=== PATIENT | male | born 1990 | race Caucasian/White ===

== ENCOUNTER 2018-01-06 18:45 | Emergency (ER) | payer SELFPAY ==
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
[2018-01-06 19:57] LABS: Absolute Lymphocytes (CBC) 2.1 K/uL (0.7-4.9); Absolute Monocytes 0.8 K/uL (0.1-1.3); Absolute Neutrophil 4.7 K/uL (1.8-8.0); Eosinophils % 1.1 % (0-4.4); Hematocrit 37.9 % (39.6-49.0); Lymphocytes % 27.2 % (15.3-44.8); MCH 32.2 pg (27.0-35.0); MCV 90.8 fL (80-100); MPV 8.7 fL (7.6-11.3); Monocytes % 10.1 % (3.3-12.3); RBC Red Blood Cell Count 4.17 M/uL (4.33-5.43)
[2018-01-06] MEDS ORDERED: FENTANYL CITR 100 MCG/2 ML ONE (20:07)
[2018-01-06] MEDS ORDERED: TETANUS & DIPHTHERIA TOX,ADULT 0.5 ML VIAL ONE (20:07)
[2018-01-06] MEDS ORDERED: ONDANSETRON 4 MG/2 ML VIAL ONE (20:07)
[2018-01-06] MEDS ORDERED: CEFAZOLIN/SWI 1gm 2 GM/20 ML SYR ONE (20:08)
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
[2018-01-06 20:38] LABS: Potassium 4.3 mmol/L (3.5-5.1)
[2018-01-06 21:22] VITALS: O2SAT 100
[2018-01-06 21:25] VITALS: BP 128/83; TEMP 98.5
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
== END 2018-01-06 21:05 | disposition short-term general hospital (02) ==
LOC: ER 18:45
DX: S21.219A Laceration without foreign body of unspecified back wall of thorax without penetration into thoracic cavity, initial encounter (principal); S31.112A Laceration without foreign body of abdominal wall, epigastric region without penetration into peritoneal cavity, initial encounter; S51.811A Laceration without foreign body of right forearm, initial encounter; T79.7XXA Traumatic subcutaneous emphysema, initial encounter; X99.1XXA Assault by knife, initial encounter; Y93.9 Activity, unspecified; Y92.9 Unspecified place or not applicable
CPT/HCPCS: 36415; 51702; 71045; 71260; 74177; 80048; 85025; 86850; 86900; 86901; 90714; 96361; 96365; 96375; 99291; J0690; J2405; J3010; P9016; Q9967

== ENCOUNTER 2019-09-08 21:18 | Emergency (ER) | payer SELFPAY ==
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
[2019-09-08] MEDS ORDERED: IBUPROFEN 400 MG TAB ONE ×2 (23:38→23:42)
[2019-09-08 23:42] VITALS: BP 121/97; TEMP 98.1; O2SAT 100
--- NOTE | 2019-09-09 10:36 | RAD REPORT ---
EXAM DESCRIPTION: RAD - Hand Right 3 View - 09/08/2019 10:13 pm CLINICAL HISTORY: Right hand pain status post injury FINDINGS: Moderately displaced fracture fifth metacarpal neck with angulation present at fracture si te Nondisplaced fracture base of the fourth metacarpal. No dislocation
== END 2019-09-08 23:36 | disposition home or self-care (01) ==
LOC: ER 21:18
PROC: 2W3CX1Z Immobilization of Right Lower Arm using Splint (ICD-10-PCS; principal; 2019-09-08)
DX: S62.366A Nondisplaced fracture of neck of fifth metacarpal bone, right hand, initial encounter for closed fracture (principal); W22.8XXA Striking against or struck by other objects, initial encounter; Y93.9 Activity, unspecified; Y92.9 Unspecified place or not applicable; F17.210 Nicotine dependence, cigarettes, uncomplicated
CPT/HCPCS: 99283

== ENCOUNTER 2021-06-15 21:19 | Emergency (ER) | payer SELFPAY ==
--- NOTE | 2021-06-15 21:36 | ER ---
Nurse's Notes [facility] Name: Jaxson Fuentes Jr Age: 30 yrs Sex: Male : 1990 Arrival Date: 06/15/2021 Time: 21:24 Bed Waiting Private MD: Diagnosis: Presentation: 06/15 21:34 Chief complaint:. ld1 ED Course: 21:24 Patient arrived in ED. es Administered Medications: No medications were administered Outcome: 21:36 Patient left the ED. ld1 Signatures: Emily Pérez Lauren RN RN ld1
== END 2021-06-15 21:36 | disposition left against medical advice (07) ==
LOC: ER 21:19
DX: Z02.89 Encounter for other administrative examinations (principal)
CPT/HCPCS: 99281

== ENCOUNTER 2023-01-29 22:56 | Emergency (ER) | payer SELFPAY ==
--- OUTSIDE RECORDS SUMMARY | 2023-01-29 23:05 | XMS REPORT | Continuity of Care Document ---
:1990 Author Organization [facility] t Address [address] [place] [id number] Care Team Providers Name Role Phone PCP, PATIENT DOES NOT HAVE A Primary Care Physician Unavaila ble CASSIA GUTIERREZ Attending Clinician Unavailable Matt YEAST CULTURE DEVELOPERCassia Attending Clinician CASSIA GUTIERREZ Admitting Clinician Unavailable Problems Condition Condition Condition Status Onset Resolution Last Treating Co mments Source Name Details Category Date Date Treatment Clinician Date No known No known Disease Unive rs active active ity of problems problems [facility] Allergies, Adverse Reactions, Alerts Allergy Allergy Status Severity Reaction(s) Onset Inactive Treating Comm ents Source Name Type Date Date Clinician NO KNOWN Drug Active Univers ALLERGIE Class ity of S [facility] Social History Social Habit Start Date Stop Date Quantity Comments Source Exposure to Not sure [facility] SARS-CoV-2 (event) Medica l Branch Sex Assigned At [birth year] [facility] 00:00:00 00:00:00 [facility] Smoking Status Start Date Stop Date Source Unknown if ever smoked [facility] Medications Ordered Filled Start Stop Current Ordering Indication Dosage Frequency Signature Comments Components Source Medication Medication Date Date Medication? Clinician (SIG) Name Name ciprofloxac 2021- No [id number] 500mg Take 1 [facility] in HCl 500 06-16 [id number] tablet by i ty of mg tablet 00:00: 04:59 [place] 2 [place] Medical times Branch daily for 5 days. Vital Signs Vital Name Observation Time Observation Value Comments Source Systolic blood 2021-06-16 03:06:00 150 mm[Hg] Univer sity of pressure [facility] Diastolic blood 2021-06-16 03:06:00 99 mm[Hg] Unive rsity of pressure [facility] Heart rate 2021-06-16 03:06:00 93 /min [facility] Body temperature 2021-06-16 03:06:[address] [facility] Respiratory rate 2021-06-16 03:06:00 18 /min [facility] Body height 2021-06-16 03:06:00 172.7 cm [facility] Body weight 2021-06-16 03:06:00 77.111 kg [facility] BMI 2021-06-16 03:06:00 25.85 kg/m2 [facility] Oxygen saturation in 2021-06-16 03:06:00 98 /min [facility] Arterial blood by [facility] Pulse oximetry Branch Procedures Procedure Date / Time Performed Performing Clinician Sourc e XR FOOT <3 VW RIGHT 2021-06-16 05:36:[address] [facility] NOTICE OF PRIVACY 2021-06-16 03:02:48 Doctor Unassigned, No [facility] PRACTICES Name [facility] Branch CONSENT/REFUSAL FOR 2021-06-16 03:02:24 Doctor Unassigned, No Un [facility] DIAGNOSIS AND Name Medical Branch TREATMENT Encounters Start End Encounter Admission Attending Care Care Encounter Source Date/Time Date/Time Type Type Clinicians Facility Department ID 2021-06-15 2021-06-16 Emergency X [facility] ERT [id number] [facility] 22:09:00 01:05:[address] [facility] 2021-06-15 2021-06-16 [id number] [facility] 22:09:00 01:05:00 [id number] [id number] [facility] 084 Branch Results This patient has no known results.
[2023-01-29] MEDS ORDERED: HYDROCODONE/APAP 5/325 MG TAB ONE (23:48)
[2023-01-29] MEDS ORDERED: IBUPROFEN 400 MG TAB ONE (23:49)
--- NOTE | 2023-01-30 00:36 | EDPHYS ---
Physician Documentation [facility] Name: Jaxson Fuentes Jr Age: 32 yrs Sex: Male : 1990 Arrival Date: 01/29/2023 Time: 22:56 Bed 5 Private MD: ED Physician Hemant Quiles HPI: 01/29 23:30 This 32 yrs old Male presents to ER via Ambulatory with complaints of Finger Injury. cp 23:30 The patient or guardian reports injury. The complaints affect the distal phalanx of cp right index finger. 23:30 Context: resulted from a crush injury, approximate 80 lb piece of metal. Onset: The cp symptoms/episode began/occurred today. Associated signs and symptoms: The patient has no apparent associated signs or symptoms. Historical: - Allergies: 23:19 No Known Allergies; vc1 - Home Meds: 23:19 None [Active]; vc1 - PMHx: 23:19 None; vc1 - PSHx: 23:19 None; vc1 - Immunization history:: Client reports having NOT received the Covid vaccine. - Social history:: Smoking status: Patient reports the use of cigarette tobacco products, smokes one-half pack cigarettes per day, Reported history of juuling and/or vaping. ROS: 23:35 MS/extremity: Positive for pain, swelling, tenderness, of the distal phalanx right cp index finger, Negative for decreased range of motion, deformity, paresthesias, 23:35 Constitutional: Negative for body aches, chills, fever, poor PO intake, cp 23:35 Respiratory: Negative for cough, shortness of breath, wheezing, 23:35 Abdomen/GI: Negative for abdominal pain, nausea, vomiting, and diarrhea, 23:35 All other systems are negative, Exam: 23:40 Constitutional: The patient appears in no acute distress, alert, awake, non-toxic, well cp developed, well nourished, 23:40 Head/Face: Normocephalic, atraumatic. cp 23:40 Musculoskeletal/extremity: Extremities: noted in the distal phalanx of right index finger: mild swelling, tender to palpation, nail intact and finger neurovascular intact, ROM: full active range of motion, in the right index finger, 23:40 Skin: abscess, not appreciated, cellulitis, is not appreciated, Vital Signs: 23:17 BP 170 / 105; Pulse 103; Resp 18; Temp 99; Pulse Ox 98% ; Weight 79.38 kg; Height 5 ft. vc1 8 in. ; 01/30 00:42 BP 154 / 97; Pulse 81; Resp 16; Pulse Ox 98% on R/A; jb4 01/29 23:17 Body Mass Index 26.61 (79.38 kg, 172.72 cm) vc1 MDM: 01/29 23:03 Patient medically screened. cp 01/30 00:35 Data reviewed: vital signs, nurses notes, radiologic studies, plain films. cp 00:35 Differential diagnosis: open fracture, closed fracture, contusion. I considered the cp following discharge prescriptions or medication management in the emergency department Medications were administered in the Emergency Department. See MAR. Independent interpretation of the following test(s) in the Emergency Department X-Ray: My interpretation is images of right index finger negative for fracture. Counseling: I had a detailed discussion with the patient and/or guardian regarding the historical points, exam findings, and any diagnostic results supporting the discharge/admit diagnosis, the presence of at least one elevated blood pressure reading (>120/80) during this emergency department visit, radiology results, to return to the emergency department if symptoms worsen or persist or if there are any questions or concerns that arise at home. Response to treatment: the patient's symptoms have markedly improved after treatment, and as a result, I will discharge patient. 01/29 23:19 Order name: XRAY Finger-Thumb RIGHT cp 01/30 00:17 Order name: Finger Splint; Complete Time: 00:36 cp Administered Medications: 01/29 23:40 Drug: Ibuprofen PO 800 mg PO once Route: PO; la4 23:41 Drug: HYDROcodone-acetaminophen PO 5 mg-325 mg 1 tabs PO once Route: PO; la4 Disposition Summary: 01/30/23 00:35 Discharge Ordered Notes: Location: Home cp Problem: new cp Symptoms: have improved cp Condition: Stable cp Diagnosis - Crushing injury of right index finger, initial encounter cp Followup: cp - With: Private Physician - When: 5 - 6 days - Reason: Recheck today's complaints Discharge Instructions: - Discharge Summary Sheet cp - Crush Injury of the Hand cp Forms: - Medication Reconciliation Form cp - Thank You Letter cp - Antibiotic Education cp - Prescription Opioid Use cp - Patient Portal Instructions cp - Leadership Thank You Letter cp Prescriptions: - Ibuprofen 800 mg Oral Tablet - take 1 tablet ORAL route every 8 hours As needed take with food; 30 tablet; cp Refills: 0, Product Selection Permitted Addendum: 02/03/2023 15:04 Co-signature as Attending Physician, Hemant Quiles MD I reviewed the patient's care r t provided by the Advanced Practice Provider and agree with the diagnosis and treatment plan. Signatures: Dispatcher [employer] EDNH Mahesh Rodriguez PA PA cp Calcote, Vanessa RN RN vc1 Hemant Quiles MD MD rt Song Palomino, RN RN la4
--- NOTE | 2023-01-30 00:36 | ER ---
Nurse's Notes [facility] Name: Jaxson Fuentes Jr Age: 32 yrs Sex: Male : 1990 Arrival Date: 01/29/2023 Time: 22:56 Bed 5 Private MD: Diagnosis: Crushing injury of right index finger, initial encounter Presentation: 01/29 23:17 Chief complaint: Patient states: last weekend I dropped an 80 pound piece of metal on vc1 my right index finger. Now the pain is shooting up into my hand. I just want to make sure I didn't break it. Coronavirus screen: Vaccine status: Patient reports being unvaccinated. Client denies travel out of the [place] in the last 14 days. At this time, the client does not indicate any symptoms associated with coronavirus-19. Ebola Screen: Patient negative for fever greater than or equal to 101.5 degrees Fahrenheit, and additional compatible Ebola Virus Disease symptoms Patient denies exposure to infectious person. Patient denies travel to an Ebola-affected area in the 21 days before illness onset. No symptoms or risks identified at this time. Initial Sepsis Screen: Does the patient meet any 2 criteria? No. Patient's initial sepsis screen is negative. Does the patient have a suspected source of infection? No. Patient's initial sepsis screen is negative. Risk Assessment: Do you want to hurt yourself or someone else? Patient reports no desire to harm self or others. Onset of symptoms is unknown. 23:17 Method Of Arrival: Ambulatory vc1 23:17 Acuity: HENRY 4 vc1 Triage Assessment: 23:19 General: Appears in no apparent distress. comfortable, Behavior is calm, cooperative, vc1 appropriate for age. Pain: Complains of pain in right index finger Pain radiates to right hand. EENT: No deficits noted. No signs and/or symptoms were reported regarding the EENT system. Neuro: Level of Consciousness is awake, alert, obeys commands, Oriented to person, place, time, situation, Appropriate for age. Cardiovascular: No deficits noted. Respiratory: Airway is patent Respiratory effort is even, unlabored, Respiratory pattern is regular, agonal. GI: No deficits noted. No signs and/or symptoms were reported involving the gastrointestinal system. : No deficits noted. No signs and/or symptoms were reported regarding the genitourinary system. Derm: No deficits noted. No signs and/or symptoms reported regarding the dermatologic system. Musculoskeletal: Range of motion: intact in all extremities, Swelling present in right index finger. Historical: - Allergies: 23:19 No Known Allergies; vc1 - Home Meds: 23:19 None [Active]; vc1 - PMHx: 23:19 None; vc1 - PSHx: 23:19 None; vc1 - Immunization history:: Client reports having NOT received the Covid vaccine. - Social history:: Smoking status: Patient reports the use of cigarette tobacco products, smokes one-half pack cigarettes per day, Reported history of juuling and/or vaping. Screenin:20 [facility] ED Fall Risk Assessment (Adult) History of falling in the last 3 months, vc1 including since admission No falls in past 3 months (0 pts) Confusion or Disorientation No (0 pts) Intoxicated or Sedated No (0 pts) Impaired Gait No (0 pts) Mobility Assist Device Used No (0 pt) Altered Elimination No (0 pt). Abuse screen: Denies threats or abuse. Nutritional screening: No deficits noted. Tuberculosis screening: No symptoms or risk factors identified. Assessment: 01/30 00:41 Reassessment: Patient appears in no apparent distress at this time. Patient and/or jb4 family updated on plan of care and expected duration. Pain level reassessed. Patient is alert, oriented x 3, equal unlabored respirations, skin warm/dry/pink. Vital Signs: 01/29 23:17 BP 170 / 105; Pulse 103; Resp 18; Temp 99; Pulse Ox 98% ; Weight 79.38 kg; Height 5 ft. vc1 8 in. ; 01/30 00:42 BP 154 / 97; Pulse 81; Resp 16; Pulse Ox 98% on R/A; jb4 01/29 23:17 Body Mass Index 26.61 (79.38 kg, 172.72 cm) vc1 ED Course: 01/29 22:59 Patient arrived in ED. jj6 23:03 Mahesh Rodriguez PA is PHCP. cp 23:03 Hemant Quiles MD is Attending Physician. cp 23:19 Triage completed. vc1 23:19 Arm band placed on right wrist. vc1 23:21 Patient has correct armband on for positive identification. Bed in low position. Call vc1 light in reach. Pulse ox on. NIBP on. 23:59 XRAY Finger-Thumb RIGHT In Process Unspecified. EDMS 01/30 00:41 No provider procedures requiring assistance completed. Patient did not have IV access jb4 during this emergency room visit. Administered Medications: 01/29 23:40 Drug: Ibuprofen PO 800 mg PO once Route: PO; la4 23:41 Drug: HYDROcodone-acetaminophen PO 5 mg-325 mg 1 tabs PO once Route: PO; la4 Medication: 01/30 00:41 VIS not applicable for this client. jb4 Outcome: 00:35 Discharge ordered by MD. cp 00:41 Discharged to home ambulatory, with family, jb4 00:41 Condition: stable 00:41 Discharge instructions given to patient, Instructed on discharge instructions, follow up and referral plans. medication usage, Demonstrated understanding of instructions, follow-up care, medications, Prescriptions given X 1, 00:42 Patient left the ED. jb4 Signatures: Dispatcher [employer] EDMS Mahesh Rodriguez PA PA Luis Manuel Flowre, RN RN jb4 Tish Reyesj6 Viky Shrestha RN RN vc1 Song Palomino RN RN la4
[2023-01-30 01:46] VITALS: TEMP 99; O2SAT 98
[2023-01-30 01:53] VITALS: BP 154/97
--- NOTE | 2023-01-30 13:40 | RAD REPORT ---
EXAM DESCRIPTION: RAD - Finger-Thumb Right - 01/29/2023 11:57 pm CLINICAL HISTORY: 32 years Male, PAIN COMPARISON: Right hand radiograph dated 09/08/2019 IMPRESSION: No fracture or dislocation. Joint spaces are preserved. Mild swelling of the index finger. Bone mineralization is normal. Electronically signed by: Benson Lopez DO 01/30/2023 12:31 AM CDT Due to temporary technical issues with the PACS/Fluency reporting system, reports are being signed by the in house radiologists without review as a courtesy to insure prompt reporting. The interpreting radiologist is fully responsible for the content of the report.
== END 2023-01-30 00:42 | disposition home or self-care (01) ==
LOC: ER 22:56
DX: S67.190A Crushing injury of right index finger, initial encounter (principal)
CPT/HCPCS: 99283

== ENCOUNTER 2023-07-14 20:33 | Emergency (ER) | payer SELFPAY ==
--- OUTSIDE RECORDS SUMMARY | 2023-07-14 20:36 | XMS REPORT | Continuity of Care Document ---
Author Name Unknown Address [address] [place] [address] [facility]connect Address [address] [place] [address] Care Team Providers Care Development Trainer Name Role Phone PCP, PATIENT DOES NOT HAVE A Primary Care Physic zahida Unavailable ANY [place] Attending Clinician Unavailable Any [place] NP Attending Clinician ANY [place] Admitting Clinician Unavailable Problems Condition Name Condition Details Condition Category Status Onset Date Resolution Date Last Treatment Date Treating Clinician Comments Source No known active problems No known active problems Disease [facility] Allergies, Adverse Reactions, Alerts Allergy Name Allergy Type Status Severity Reaction(s) Onset Date Inactive Date Treating Clinician Comments Source NO KNOWN ALLERGIE S Drug Class Active [facility] Social History Social Habit Start Date Stop Date Quantity Comments Source Exposure to SARS-CoV-2 (event) Not sure [facility] Sex Assigned At 1990 00:00:00 1990 00:00:00 [facility] Smoking Status Start Date Stop Date Source Unknown if ever smoked [facility] Medications Ordered Medication Name Filled Medication Name Start Date Stop Date Current Medication? Ordering Clinician Indication Dosage Frequency Signature (SIG) Comments Components Source ciprofloxac in HCl 500 mg tablet 06-16 00:00: 00 06-22 04:59 :00 No [id number] 500mg Take 1 tablet by mouth 2 (two) times daily for 5 days. [facility] Vital Signs Vital Name Observation Time Observation Value Comments S ource Systolic blood pressure 2021-06-16 03:06:00 150 mm[Hg] [facility] Diastolic blood pressure 2021-06-16 03:06:00 99 mm[Hg] [facility] Heart rate 2021-06-16 03:06:00 93 /min [facility] Body temperature 2021-06-16 03:06:00 37.17 [place] Respiratory rate 2021-06-16 03:06:00 18 /min [facility] Body height 2021-06-16 03:06:00 172.7 cm [facility] Body weight 2021-06-16 03:06:00 77.111 kg [facility] BMI 2021-06-16 03:06:00 25.85 kg/m2 [facility] Oxygen saturation in Arterial blood by Pulse oximetry 2021-06-16 03:06:00 98 /min [facility] Procedures Procedure Date / Time Performed Performing Clinicia n Source XR FOOT <3 VW RIGHT 2021-06-16 05:36:32 [place] [facility] NOTICE OF PRIVACY PRACTICES 2021-06-16 03:02:48 Doctor Unassigned, [place] [facility] CONSENT/REFUSAL FOR DIAGNOSIS AND TREATMENT 2021-06-16 03:02:24 Doctor Unassigned, [place] [facility] Encounters Start Date/Time End Date/Time Encounter Type Admission Type Attending [facility] Care Facility Care Department Encounter ID Source 2021-06-15 22:09:00 2021-06-16 01:05:00 Emergency X ANY [place] [facility] ERT [id number] [facility] 2021-06-15 22:09:00 2021-06-16 01:05:00 Emergency Any [place] [facility] [id number] [facility]
--- NOTE | 2023-07-14 21:32 | RAD REPORT ---
EXAM DESCRIPTION: RAD - Chest Single View - 07/14/2023 9:22 pm CLINICAL HISTORY: CONGESTION Chest pain. COMPARISON: Chest Single View dated 01/06/2018; CHEST PA AND LAT 2 VIEW dated 07/29/2014 FINDINGS: Portable technique limits examination quality. The lungs are grossly clear. The heart is normal in size. No displaced fractures. IMPRESSION: No acute intrathoracic process suspected.
[2023-07-14 21:40] LABS: Absolute Basophils 0.1 K/uL (0-0.5); Absolute Lymphocytes (CBC) 2.3 K/uL (0.7-4.9); Absolute Monocytes 0.9 K/uL (0.1-1.3); Eosinophils % 0.4 % (0-4.4); Hemoglobin 14.4 g/dL (13.6-17.9); MCH 30.8 pg (27.0-35.0); MCHC 34.2 g/dL (32.0-36.0); MCV 90.1 fL (80-100); MPV 7.7 fL (7.6-11.3); Monocytes % 6.5 % (3.3-12.3); Neutrophils % 75.1 % (41.7-73.7); Platelets 430 thou/uL (152-406); RBC Red Blood Cell Count 4.66 M/uL (4.33-5.43); Red Cell Distribution Width 13.4 % (12.1-15.2)
[2023-07-14 21:42] LABS: PT Prothrombin Time 12.3 SECONDS (9.5-12.5); Protime INR 1.12
[2023-07-14 22:00] LABS: ALT/SGPT 48 U/L (16-61); AST/SGOT 24 U/L (15-37); Albumin 3.7 g/dL (3.4-5.0); Albumin/Globulin Ratio 0.9 (1.1-1.8); Alkaline Phosphatase 57 U/L (45-117); BUN Blood Urea Nitrogen 9 mg/dL (7-18); Bicarbonate 26 mEq/L (21-32); Bilirubin Total 0.4 mg/dL (0.2-1.0); Globulin 4.1 g/dL (2.3-3.5); Glomerular Filtration Rate 82 ml/min (=/>90); Glucose Level 125 mg/dL (74-106); NT PRO-BNP 19 pg/mL (<125); Protein, Total 7.8 g/dL (6.4-8.2); Sodium Level 137 mEq/L (136-145); Troponin High Sensitivity 6.3 pg/mL (<58.9)
[2023-07-14 22:02] LABS: Barbiturates NEGATIVE (NEGATIVE); Benzodiazepines NEGATIVE (NEGATIVE); Bilirubin Direct < 0.1 mg/dL (0-0.2); Bilirubin Indirect, Calculated ND mg/dL (0.2-0.8); Cocaine NEGATIVE (NEGATIVE); METHAMPHETAM NEGATIVE (NEGATIVE); Methadone NEGATIVE (NEGATIVE); Opiates NEGATIVE (NEGATIVE); Phencyclidine NEGATIVE (NEGATIVE); THC Cannibis NEGATIVE (NEGATIVE)
[2023-07-14 23:03] LABS: SARS-CoV-2 Antigen CONTROL BLUE LINE VIS/BG OK; SARS-CoV-2 Antigen Rapid Res Negative (Negative)
[2023-07-14] MEDS ORDERED: AZITHROMYCIN 250 MG TAB ONE (23:11)
[2023-07-14] MEDS ORDERED: GUAIFENESIN/DM 5 ML UCUP ONE (23:12)
[2023-07-14 23:19] LABS: Monoscreen NEG (NEG)
--- NOTE | 2023-07-15 00:06 | ER ---
Nurse's Notes [facility] Name: Jaxson Fuentes Jr Age: 32 yrs Sex: Male : 1990 Arrival Date: 07/14/2023 Time: 20:33 Bed 17 [facility] MD: Diagnosis: Dyspnea;Acute bronchitis, unspecified Presentation: 07/13 20:45 Chief complaint: Patient states: SOB off and on X 1 month. Coronavirus screen: At this vc1 time, the client does not indicate any symptoms associated with coronavirus-19. Ebola Screen: Patient negative for fever greater than or equal to 101.5 degrees Fahrenheit, and additional compatible Ebola Virus Disease symptoms Patient denies exposure to infectious person. Patient denies travel to an Ebola-affected area in the 21 days before illness onset. No symptoms or risks identified at this time. Initial Sepsis Screen: Does the patient meet any 2 criteria? No. Patient's initial sepsis screen is negative. Does the patient have a suspected source of infection? No. Patient's initial sepsis screen is negative. Risk Assessment: Do you want to hurt yourself or someone else? Patient reports no desire to harm self or others. Note Mowed today and started feeling SOB made feel like was going to "fall out". Onset of symptoms is unknown. Care prior to arrival: Medication(s) given: albuterol inhaler. 20:45 Method Of Arrival: Ambulatory vc1 20:45 Acuity: HENRY 3 vc1 Triage Assessment: 20:48 General: Appears in no apparent distress. uncomfortable, Behavior is calm, cooperative, vc1 appropriate for age. Pain: Denies pain. EENT: No deficits noted. No signs and/or symptoms were reported regarding the EENT system. Neuro: Level of Consciousness is awake, alert, obeys commands, Oriented to person, place, time, situation, Appropriate for age. Cardiovascular: No deficits noted. Respiratory: Reports shortness of breath at rest Onset: The symptoms/episode began/occurred off and on for a few months, the patient has mild shortness of breath. Respiratory: Airway is patent Respiratory effort is even, unlabored, Respiratory pattern is regular, symmetrical. GI: No deficits noted. No signs and/or symptoms were reported involving the gastrointestinal system. : No deficits noted. No signs and/or symptoms were reported regarding the genitourinary system. Derm: No deficits noted. No signs and/or symptoms reported regarding the dermatologic system. Musculoskeletal: No deficits noted. No signs and/or symptoms reported regarding the musculoskeletal system. Historical: - Allergies: 20:47 No Known Allergies; vc1 - Home Meds: 20:47 Albuterol Inhl [Active]; vc1 - PMHx: 20:47 acute bronchitis; vc1 - PSHx: 20:47 None; vc1 - Immunization history:: Client reports having NOT received the Covid vaccine. Flu vaccine is not up to date. - Infectious Disease History:: Denies. - Social history:: Smoking status: Patient reports the use of cigarette tobacco products, half to full PPD. - Family history:: not pertinent. Screenin:31 [facility] ED Fall Risk Assessment (Adult) History of falling in the last 3 months, as6 including since admission No falls in past 3 months (0 pts) Confusion or Disorientation No (0 pts) Intoxicated or Sedated No (0 pts) Impaired Gait No (0 pts) Mobility Assist Device Used No (0 pt) Altered Elimination No (0 pt) Score/Fall Risk Level 0 - 2 = Low Risk Oriented to surroundings, Maintained a safe environment, Educated pt \\T\\ family on fall prevention, incl call for assistance when getting out of bed, Assessed \\T\\ reinforced patient's understanding of fall precautions. Abuse screen: Denies threats or abuse. Denies injuries from another. Nutritional screening: No deficits noted. Tuberculosis screening: No symptoms or risk factors identified. Assessment: 21:30 General: Appears in no apparent distress. Behavior is calm, cooperative. Pain: Denies as6 pain. Neuro: Level of Consciousness is awake, alert, obeys commands, Oriented to person, place, time, situation. Cardiovascular: Denies chest pain, Heart tones S1 S2 present. Respiratory: Reports shortness of breath cough that is Airway is patent Trachea midline Respiratory effort is even, unlabored, Respiratory pattern is regular, symmetrical, Breath sounds are clear bilaterally. GI: No deficits noted. No signs and/or symptoms were reported involving the gastrointestinal system. : No deficits noted. No signs and/or symptoms were reported regarding the genitourinary system. EENT: No deficits noted. No signs and/or symptoms were reported regarding the EENT system. Derm: Skin is intact, is healthy with good turgor. Musculoskeletal: Circulation, motion, and sensation intact. 22:26 Reassessment: Patient appears in no apparent distress at this time. Patient and/or as6 family updated on plan of care and expected duration. Pain level reassessed. Patient is alert, oriented x 3, equal unlabored respirations, skin warm/dry/pink. 22:29 Reassessment: Patient appears in no apparent distress at this time. assumed care of pt, km8 denies any needs at this time and updated on POC. Cardiovascular: Rhythm is sinus rhythm. 23:35 Reassessment: Patient appears in no apparent distress at this time. No changes from km8 previously documented assessment. Patient and/or family updated on plan of care and expected duration. Pain level reassessed. Patient is alert, oriented x 3, equal unlabored respirations, skin warm/dry/pink. Vital Signs: 20:45 BP 147 / 89; Pulse 106; Resp 15; Temp 98; Pulse Ox 100% ; Weight 81.65 kg; Height 5 ft. vc1 8 in. ; Pain 0/10; 21:33 BP 128 / 85; Pulse 73; Resp 13 S; Pulse Ox 99% on R/A; as6 22:25 BP 131 / 81; Pulse 78; Resp 14 S; Pulse Ox 97% on R/A; as6 23:00 BP 132 / 91; Pulse 82; Resp 16; Pulse Ox 100% on R/A; km8 23:45 BP 127 / 90; Pulse 73; Resp 16; Pulse Ox 100% on R/A; km8 20:45 Body Mass Index 27.37 (81.65 kg, 172.72 cm) vc1 20:45 Pain Scale: Adult vc1 [place] Coma Score: 23:14 Eye Response: spontaneous(4). Motor Response: obeys commands(6). Verbal Response: sp4 oriented(5). Total: 15. ED Course: 20:37 Patient arrived in ED. ra3 20:42 Gary Schwab MD is Attending Physician. sp4 20:47 Triage completed. vc1 20:48 Arm band placed on right wrist. vc1 20:53 Kenney Iraheta, LICHA is Primary Nurse. as6 21:24 XRAY Chest (1 view) In Process Unspecified. EDMS 21:28 Alcohol Level Sent. as6 21:28 Urine Drug Screen Sent. as6 21:29 Basic Metabolic Panel Sent. as6 21:29 CBC with Diff Sent. 21:29 LFT's Sent. : Magnesium Sent. : NT PRO-BNP Sent. 6 21: PT-INR Sent. 21: Troponin HS Sent. as6 21:31 Inserted saline lock: 20 gauge in right antecubital area, using aseptic technique. as6 Blood collected. 21:34 Placed in gown. Bed in low position. Call light in reach. Side rails up X 1. Client as6 placed on continuous cardiac and pulse oximetry monitoring. NIBP monitoring applied. monitoring engineer on. Warm blanket given. 21:40 Flu and/or RSV swab sent to lab. vk 23:35 No provider procedures requiring assistance completed. 8 07/14 00:04 Jozef Busby DO is Referral Physician. sp4 00:24 Provided Education on: d/c teaching. 00:25 IV discontinued, intact, bleeding controlled, No redness/swelling at site. Pressure km8 dressing applied. Administered Medications: 07/13 23:15 Drug: Dextromethorphan-Guaifenesin PO Liquid 10 mg-100 mg/5 mL 10 ml PO once Route: PO; 07/14 00:18 Follow up: Response: No adverse reaction 8 07/13 23:15 Drug: AZITHromycin PO 500 mg PO once Route: PO; 07/14 00:18 Follow up: Response: No adverse reaction 8 Medication: 07/13 21:34 VIS not applicable for this client. as6 Outcome: 07/14 00:06 Discharge ordered by . sp4 00:24 Discharged to home ambulatory, with family, 8 00:24 Condition: good 00:24 Discharge instructions given to patient, Instructed on discharge instructions, follow up and referral plans. medication usage, Demonstrated understanding of instructions, follow-up care, medications, Prescriptions given X 3, 00:25 Patient left the ED. 8 Signatures: Dispatcher [employer] EDMS Kenney Iraheta RN RN as6 Viky Shrestha RN RN vc1 Gary Schwab MD MD sp4 Melisa Keating RN RN km8 Azul Zuleta Vivian vk Corrections: (The following items were deleted from the chart) 07/13 21:33 21:28 T4 FREE+C.LAB.BRZ drawn and sent. as6 EDMS 21:34 21:28 THYROID STIMULAT HORMONE+C.LAB.BRZ drawn and sent. as6 EDMS
--- NOTE | 2023-07-15 00:06 | EDPHYS ---
Physician Documentation [facility] Name: Jaxson Fuentes Jr Age: 32 yrs Sex: Male : 1990 Arrival Date: 07/14/2023 Time: 20:33 Bed 17 Private MD: ED Physician Gary Schwab HPI: 07/13 20:46 This 32 yrs old Other Male presents to ER via Unassigned with complaints of Shortness sp4 Of Breath - [id number]. 22:59 ED pleasant 32-year-old male presents with acute onset shortness of breath for the past sp4 1 month. Patient reports shortness of breath associated with some chest discomfort without fever without dyspnea on exertion without orthopnea. Patient reported dry cough associated with the symptoms. Historical: - Allergies: 20:47 No Known Allergies; vc1 - Home Meds: 20:47 Albuterol Inhl [Active]; vc1 - PMHx: 20:47 acute bronchitis; vc1 - PSHx: 20:47 None; vc1 - Immunization history:: Client reports having NOT received the Covid vaccine. Flu vaccine is not up to date. - Infectious Disease History:: Denies. - Social history:: Smoking status: Patient reports the use of cigarette tobacco products, half to full PPD. - Family history:: not pertinent. ROS: 22:59 Constitutional: Negative for fever, chills, and weight loss, today for shortness of sp4 breath and dry cough Eyes: Negative for injury, pain, redness, and discharge, ENT: Negative for injury, pain, and discharge, Neck: Negative for injury, pain, and swelling, Cardiovascular: Positive for shortness of breath Respiratory: Positive for dry cough Abdomen/GI: Negative for abdominal pain, nausea, vomiting, diarrhea, and constipation, Back: Negative for injury and pain, : Negative for injury, bleeding, discharge, and swelling, 22:59 All other systems are negative, Exam: 23:14 Constitutional: This is a well developed, well nourished patient who is awake, alert, sp4 and in no acute distress. Head/Face: Normocephalic, atraumatic. Eyes: Pupils equal round and reactive to light, extra-ocular motions intact. Lids and lashes normal. Conjunctiva and sclera are not injected. Cornea within normal limits. Periorbital areas with no swelling, redness, or edema. ENT: Nares patent. No nasal discharge, no septal abnormalities noted. Tympanic membranes are normal and external auditory canals are clear. Oropharynx with no redness, swelling, or masses, exudates, or evidence of obstruction, uvula midline. Mucous membranes moist. Neck: Trachea midline, no thyromegaly or masses palpated, and no cervical lymphadenopathy. Supple, full range of motion without nuchal rigidity, or vertebral point tenderness. Chest/axilla: Normal chest wall appearance and motion. Nontender with no deformity. No lesions are appreciated. Cardiovascular: Regular rate and rhythm with a normal S1 and S2. No gallops, murmurs, or rubs. Normal PMI, no JVD. No pulse deficits. Respiratory: Lungs have equal breath sounds bilaterally, clear to auscultation and percussion. No rales, rhonchi or wheezes noted. No increased work of breathing, no retractions or nasal flaring. Abdomen/GI: Soft, with normal bowel sounds. No distension or tympany. No guarding or rebound. No evidence of tenderness throughout. Back: No spinal tenderness. No costovertebral tenderness. Skin: Warm, dry with normal turgor. Normal color with no rashes, no lesions, and no evidence of cellulitis. MS/ Extremity: Pulses equal, no cyanosis. Neurovascular intact. Full, normal range of motion. Neuro: Awake and alert, GCS 15, oriented to person, place, time, and situation. Cranial nerves II-XII grossly intact. Motor strength 5/5 in all extremities. Sensory grossly intact. Psych: Awake, alert, with orientation to person, place and time. Behavior, mood, and affect are within normal limits 23:14 ECG was reviewed by the Attending Physician. EKG at 2121 normal sinus rhythm with a rate of 84. No ST elevation or depression. Normal EKG Vital Signs: 20:45 BP 147 / 89; Pulse 106; Resp 15; Temp 98; Pulse Ox 100% ; Weight 81.65 kg; Height 5 ft. vc1 8 in. ; Pain 0/10; 21:33 BP 128 / 85; Pulse 73; Resp 13 S; Pulse Ox 99% on R/A; as6 22:25 BP 131 / 81; Pulse 78; Resp 14 S; Pulse Ox 97% on R/A; as6 23:00 BP 132 / 91; Pulse 82; Resp 16; Pulse Ox 100% on R/A; km8 23:45 BP 127 / 90; Pulse 73; Resp 16; Pulse Ox 100% on R/A; km8 20:45 Body Mass Index 27.37 (81.65 kg, 172.72 cm) vc1 20:45 Pain Scale: Adult vc1 [place] Coma Score: 23:14 Eye Response: spontaneous(4). Motor Response: obeys commands(6). Verbal Response: sp4 oriented(5). Total: 15. MDM: 21:23 Patient medically screened. sp4 07/14 00:03 Differential diagnosis: Anxiety Reaction pneumonia, Pneumothorax Psychogenic Unstable sp4 Angina. Data reviewed: vital signs, nurses notes, lab test result(s), EKG, radiologic studies, plain films. ED course: EXAM DESCRIPTION: RAD - Chest Single View - 07/14/2023 9:22 pm CLINICAL HISTORY: CONGESTION Chest pain. COMPARISON: Chest Single View dated 01/06/2018; CHEST PA AND LAT 2 VIEW dated 07/29/2014 FINDINGS: Portable technique limits examination quality. The lungs are grossly clear. The heart is normal in size. No displaced fractures. IMPRESSION: No acute intrathoracic process suspected. . 00:08 ED course: Discharge home. No sign of heart failure or acute coronary syndrome. sp4 Possibly acute bronchitis with a dry cough. Will cover with Zithromax p.o.. 07/13 20:46 Order name: Basic Metabolic Panel; Complete Time: 22:47 sp4 07/13 20:46 Order name: CBC with Diff; Complete Time: 22:47 sp4 07/13 20:46 Order name: LFT's; Complete Time: 22:47 sp4 07/13 20:46 Order name: Magnesium; Complete Time: 22:47 sp4 07/13 20:46 Order name: NT PRO-BNP; Complete Time: 22:47 sp4 07/13 20:46 Order name: PT-INR; Complete Time: 22:47 sp4 07/13 20:46 Order name: Troponin HS; Complete Time: 22:47 sp4 07/13 20:50 Order name: Urine Drug Screen; Complete Time: 22:47 sp4 07/13 20:50 Order name: Alcohol Level; Complete Time: 22:47 sp4 07/13 20:54 Order name: [place] Screen Profile; Complete Time: 23:23 sp4 07/13 20:54 Order name: SARS RAPID; Complete Time: 23:08 sp4 07/13 20:54 Order name: Influenza Screen (a \T\ B); Complete Time: 00:21 sp4 07/13 21:34 Order name: C-Reactive Protein; Complete Time: 22:47 EDMS 07/13 21:34 Order name: T4 Free; Complete Time: 22:47 EDMS 07/13 21:34 Order name: Thyroid Stimulating Hormone; Complete Time: 22:47 EDMS 07/13 20:46 Order name: XRAY Chest (1 view); Complete Time: 22:47 sp4 07/13 20:46 Order name: EKG; Complete Time: 20:47 4 07/13 20:46 Order name: Cardiac monitoring; Complete Time: 21:29 sp4 07/13 20:46 Order name: EKG - Nurse/Tech; Complete Time: 21:29 4 07/13 20:46 Order name: IV Saline Lock; Complete Time: 21:29 4 07/13 20:46 Order name: Labs collected and sent; Complete Time: 21:29 4 07/13 20:46 Order name: O2 Per Protocol; Complete Time: 21:29 4 07/13 20:46 Order name: O2 Sat Monitoring; Complete Time: 21:29 sp4 EC/17 23:14 Rate is 84 beats/min. Rhythm is regular, Normal Sinus Rhythm. QRS [place] is Normal. [place] sp4 interval is normal. QRS interval is normal. QT interval is normal. No Q waves. T waves are Normal. No ST changes noted. Clinical impression: No evidence of ischemia. Interpreted by me. Reviewed by me. Administered Medications: 23:15 Drug: Dextromethorphan-Guaifenesin PO Liquid 10 mg-100 mg/5 mL 10 ml PO once Route: PO; 07/14 00:18 Follow up: Response: No adverse reaction 07/13 23:15 Drug: AZITHromycin PO 500 mg PO once Route: PO; 07/14 00:18 Follow up: Response: No adverse reaction Disposition Summary: 07/15/23 00:06 Discharge Ordered Notes: Location: Home sp4 Problem: new sp4 Symptoms: have improved sp4 Condition: Stable sp4 Diagnosis - Dyspnea sp4 - Acute bronchitis, unspecified sp4 Followup: sp4 - With: Jozef Busby DO - When: 7 - 10 days - Reason: Recheck today's complaints Discharge Instructions: - Discharge Summary Sheet sp4 - Acute Bronchitis, Adult sp4 Forms: - Patient Portal Instructions sp4 Prescriptions: - Ventolin HFA 90 mcg/actuation Inhalation HFA Aerosol Inhaler - inhale 2 inhalation INHALATION route every 4 hours Dispense with Spacer, USE sp4 PRN dyspenea or cough; 1 unit; Refills: 0, Product Selection Permitted - dextromethorphan-guaifenesin 20-400 mg Oral tablet - take 1 tablet ORAL route every 6 hours PRN cough; 40 tablet; Refills: 0, sp4 Product Selection Permitted - Zithromax Z-Wilder 250 mg Oral Tablet - take 1 tablet ORAL route as directed for 5 days Day 1 - take two (2) tablets sp4 one time. Day 2, 3, 4 , 5 take one (1) tablet once daily.; 6 tablet; Refills: 0, Product Selection Permitted Signatures: Dispatcher [employer] EDMS Viky Shrestha RN RN vc1 Gary Schwab MD MD sp4 Melisa Keating RN RN km8 Corrections: (The following items were deleted from the chart) 07/13 20:47 20:47 BASIC METABOLIC PANEL+C.LAB.BRZ ordered. EDMS EDMS 20:47 20:47 CBC+H.LAB.BRZ ordered. EDMS EDMS 20:47 20:47 HEPATIC FUNCTION+C.LAB.BRZ ordered. EDMS EDMS 20:47 20:47 MAGNESIUM+C.LAB.BRZ ordered. EDMS EDMS 20:47 20:47 PROBNP+C.LAB.BRZ ordered. EDMS EDMS 20:47 20:47 PROTIME (+INR)+COAG.LAB.BRZ ordered. EDMS EDMS 20:47 20:47 Troponin High Sensitivity+C.LAB.BRZ ordered. EDMS EDMS 21:33 20:51 T4 FREE+C.LAB.BRZ ordered. EDMS EDMS 21:34 20:51 THYROID STIMULAT HORMONE+C.LAB.BRZ ordered. EDMS EDMS 21:34 20:55 C-REACTIVE PROTEIN+C.LAB.BRZ ordered. EDMS EDMS
[2023-07-15 12:31] VITALS: BP 127/90; TEMP 98; O2SAT 100
== END 2023-07-15 00:25 | disposition home or self-care (01) ==
LOC: ER 20:33
DX: J20.9 Acute bronchitis, unspecified (principal); Z11.52 Encounter for screening for COVID-19
CPT/HCPCS: 36415; 71045; 80048; 80076; 80307; 82077; 83735; 83880; 84439; 84443; 84484; 85025; 85610; 86140; 86308; 87804; 87811; 93005; 99284

== ENCOUNTER 2023-08-10 14:17 | Emergency (ER) | payer SELFPAY ==
[2023-08-10] MEDS ORDERED: TETRACAINE HCL 0.5% 4ML OPTH ONE (14:37)
[2023-08-10] MEDS ORDERED: FLUORESCEIN SODIUM 1 MG/WRAP ONE (14:38)
--- NOTE | 2023-08-10 15:03 | ER ---
Nurse's Notes [facility] Name: Jaxson Fuentes Jr Age: 32 yrs Sex: Male : 1990 Arrival Date: 08/10/2023 Time: 14:17 Bed 12 Private MD: Diagnosis: Unspecified acute conjunctivitis, right eye Presentation: 08/09 14:29 Chief complaint: Patient states: about 24 hours ago, was playing with baby and the baby ko1 scratched right eyeball, now vision is blurry and eye is painful. Coronavirus screen: At this time, the client does not indicate any symptoms associated with coronavirus-19. Ebola Screen: No symptoms or risks identified at this time. Initial Sepsis Screen: Does the patient meet any 2 criteria? No. Patient's initial sepsis screen is negative. Does the patient have a suspected source of infection? No. Patient's initial sepsis screen is negative. Risk Assessment: Do you want to hurt yourself or someone else? Patient reports no desire to harm self or others. Onset of symptoms was August 10, 2023. 14:29 Method Of Arrival: Ambulatory ko1 14:29 Acuity: HENRY 4 ko1 Triage Assessment: 14:31 General: Appears in no apparent distress. uncomfortable, Behavior is calm, cooperative, ko1 appropriate for age. Pain: Complains of pain in right iris. EENT: Reports blurred vision in iris of right eye. Neuro: No deficits noted. Cardiovascular: No deficits noted. Respiratory: No deficits noted. GI: No deficits noted. : No deficits noted. Derm: No deficits noted. Musculoskeletal: No deficits noted. Historical: - Allergies: 14:31 No Known Allergies; ko1 - Home Meds: 14:31 Albuterol Inhl [Active]; ko1 - PMHx: 14:31 acute bronchitis; ko1 - Immunization history:: Adult Immunizations unknown. - Infectious Disease History:: Denies. - Social history:: Smoking status: Patient reports the use of cigarette tobacco products, smokes one pack cigarettes per day. Screenin:33 [facility] ED Fall Risk Assessment (Adult) History of falling in the last 3 months, ko1 including since admission No falls in past 3 months (0 pts) Confusion or Disorientation No (0 pts) Intoxicated or Sedated No (0 pts) Impaired Gait No (0 pts) Mobility Assist Device Used No (0 pt) Altered Elimination No (0 pt) Score/Fall Risk Level 0 - 2 = Low Risk Oriented to surroundings, Maintained a safe environment, Educated pt \T\ family on fall prevention, incl call for assistance when getting out of bed, Assessed \T\ reinforced patient's understanding of fall precautions, Provided non-skid footwear, Hourly rounding (assess needs \T\ fall precautionary measures) done, Used ambulatory aids as needed (educated on \T\ assisted with), Used gait belt as appropriate. Abuse screen: Denies threats or abuse. Denies injuries from another. Nutritional screening: No deficits noted. Tuberculosis screening: No symptoms or risk factors identified. Assessment: 14:33 Reassessment: see triage note. ko1 Vital Signs: 14:29 BP 145 / 93; Pulse 97; Resp 18; Temp 98.1; Pulse Ox 100% on R/A; ko1 15:05 BP 138 / 90; Pulse 92; Resp 16; Pulse Ox 99% ; ko1 ED Course: 14:23 Patient arrived in ED. mg5 14:25 Ammy Oneill [facility]NP-C [facility]. kb 14:25 Mahesh Murillo MD is Attending Physician. kb 14:27 Sydnee Spears, RN is Primary Nurse. iw 14:29 Corina Shaw, LICHA is Primary Nurse. ko1 14:31 Triage completed. ko1 14:31 Arm band placed on right wrist. Patient placed in an exam room, on a stretcher, on ko1 pulse oximetry, Patient notified of wait time. 14:33 Patient has correct armband on for positive identification. Bed in low position. Call ko1 light in reach. Side rails up X 1. Provided Education on: call light. Pulse ox on. NIBP on. Door closed. Noise minimized. Lights dimmed. Warm blanket given. Pillow given. 15:05 Assist provider with eye exam of right eye. using slit lamp, Performed by Ammy GALVEZ Patient tolerated well. Patient did not have IV access during this emergency room visit. Administered Medications: 15:05 Drug: Tetracaine Ophthalmic Drops 0.5 % 1 drops Ophthalmic once Route: Ophthalmic; mackenzie Site: right eye; 15:06 Follow up: Response: No adverse reaction ko1 Medication: 14:33 VIS not applicable for this client. ko1 Outcome: 15:03 Discharge ordered by MD. díaz 15:37 Discharged to home ambulatory, with family, ko1 15:37 Condition: stable 15:37 Discharge instructions given to patient, family, Instructed on discharge instructions, follow up and referral plans. Demonstrated understanding of instructions, follow-up care, medications, Prescriptions given X 1, 15:37 Patient left the ED. ko1 Signatures: Ammy Oneill, DOC-C BANANA HANDLER-Sydnee Brady, RN RN iw Corina Shaw RN RN ko1 Layla Romero mg5
--- NOTE | 2023-08-10 15:03 | EDPHYS ---
Physician Documentation [facility] Name: Jaxson Fuentes Jr Age: 32 yrs Sex: Male : 1990 Arrival Date: 08/10/2023 Time: 14:17 Bed 12 Private MD: ED Physician Mahesh Murillo HPI: 08/09 14:54 This 32 yrs old Male presents to ER via Ambulatory with complaints of Eye Problem. kb 14:54 Pt is a 32 year old male who presents for pain and blurred vision to right eye that kb started around 1400 yesterday. States his eye was scratched by a baby while playing. . Historical: - Allergies: 14:31 No Known Allergies; ko1 - Home Meds: 14:31 Albuterol Inhl [Active]; ko1 - PMHx: 14:31 acute bronchitis; ko1 - Immunization history:: Adult Immunizations unknown. - Infectious Disease History:: Denies. - Social history:: Smoking status: Patient reports the use of cigarette tobacco products, smokes one pack cigarettes per day. ROS: 14:54 Constitutional: As per HPI kb Exam: 14:54 Constitutional: This is a well developed, well nourished patient who is awake, alert, kb and in no acute distress. Head/Face: Normocephalic, atraumatic. ENT: Moist Mucous membranes Cardiovascular: Regular rate Respiratory: Respirations even and unlabored. No increased work of breathing. Talking in full sentences Skin: Warm, dry with normal turgor. Normal color. MS/ Extremity: Pulses equal, no cyanosis. Neurovascular intact. Full, normal range of motion. Neuro: Awake and alert, GCS 15, oriented to person, place, time, and situation. Moves all extremities. Normal gait. Vital Signs: 14:29 BP 145 / 93; Pulse 97; Resp 18; Temp 98.1; Pulse Ox 100% on R/A; ko1 15:05 BP 138 / 90; Pulse 92; Resp 16; Pulse Ox 99% ; ko1 MDM: 14:25 Patient medically screened. kb 15:03 Differential diagnosis: Corneal abrasion of Corneal ulcer of Foreign body in Data kb reviewed: vital signs, nurses notes. Counseling: I had a detailed discussion with the patient and/or guardian regarding the historical points, exam findings, and any diagnostic results supporting the discharge/admit diagnosis, the need for outpatient follow up, an opthalmologist, to return to the emergency department if symptoms worsen or persist or if there are any questions or concerns that arise at home. ED course: Pain resolved after tetracaine drops. No corneal abrasion, ulcer or FB seen on exam. Pt reports normal vision upon discharge. 08/09 14:32 Order name: Eye Tray; Complete Time: 14:37 kb 08/09 14:32 Order name: Fluoresene Opth strip; Complete Time: 14:39 kb Administered Medications: 15:05 Drug: Tetracaine Ophthalmic Drops 0.5 % 1 drops Ophthalmic once Route: Ophthalmic; ko1 Site: right eye; 15:06 Follow up: Response: No adverse reaction ko1 Disposition Summary: 08/10/23 15:03 Discharge Ordered Notes: Location: Home kb Condition: Stable kb Diagnosis - Unspecified acute conjunctivitis, right eye kb Followup: kb - With: Emergency Department - When: As needed - Reason: Worsening of condition Followup: kb - With: Private Physician - When: 2 - 3 days - Reason: Recheck today's complaints, Continuance of care, Re-evaluation by your physician Discharge Instructions: - Discharge Summary Sheet kb - Bacterial Conjunctivitis, Adult, [id number] kb Forms: - Medication Reconciliation Form kb - Antibiotic Education kb - Prescription Opioid Use kb - Patient Portal Instructions kb - Leadership Thank You Letter kb - Work release form ko1 Prescriptions: - Vigamox 0.5 % Ophthalmic Drops - instill 1 drop OPHTHALMIC route every 8 hours for 7 days; 5 milliliter; kb Refills: 0, Product Selection Permitted Signatures: Ammy Oneill FNP-C FNP-Ckb Oliver, Kathy, RN RN ko1
[2023-08-10 19:10] VITALS: BP 138/90; TEMP 98.1; O2SAT 99
== END 2023-08-10 15:37 | disposition home or self-care (01) ==
LOC: ER 14:17
DX: H10.31 Unspecified acute conjunctivitis, right eye (principal)
CPT/HCPCS: 99284